=== PATIENT | male | born 1975 | race American Indian/Alaskan Native ===

== ENCOUNTER 2016-12-19 20:47 | Emergency (ER) | payer MEDICAID, OTHER ==
[2016-12-19 20:49] VITALS: BMI 36.0
[2016-12-19 21:07] VITALS: RESP 16; TEMP 98.6
[2016-12-19] MEDS ORDERED: Sodium Chloride 0.9% 1,000 ML IV STA (21:39)
--- NOTE | 2016-12-19 21:41 | ED PDOC ---
Arrival/HPI - General Chief Complaint: GI Problem Time Seen by Provider: 12/19/16 21:38 Historian: Patient - History of Present Illness Narrative History of Present Illness (Text): 12/19/16 21:40 This 41 yo male with pmh constipation, presents to this ED c/o abdominal pain since early this morning. Patient stated he saw his PMD last week for constipation, and he was prescribed Miralax, but medication is not working. Patient denies n/v, sob, cp, rectal bleeding, melena, hematochezia, dizziness, rash, urinary symptoms, or abnormal gait. Time/Duration: Other (see hpi) Context: Home Past Medical History - Provider Review Nursing Documentation Reviewed: Yes - Infectious Disease Hx of Infectious Diseases: None - Cardiac Hx Cardiac Disorders: No - Pulmonary Hx Respiratory Disorders: No - Neurological Hx Neurological Disorder: No - HEENT Hx HEENT Disorder: No - Renal Hx Renal Disorder: No - Endocrine/Metabolic Hx Endocrine Disorders: No - Hematological/Oncological Hx Blood Disorders: No - Integumentary Hx Dermatological Disorder: No - Musculoskeletal/Rheumatological Hx Musculoskeletal Disorders: No - Gastrointestinal Hx Constipation: Yes - Genitourinary/Gynecological Hx Genitourinary Disorders: No - Psychiatric Hx Psychophysiologic Disorder: No Hx Substance Use: No - Anesthesia Hx Anesthesia: No Family/Social History - Physician Review Nursing Documentation Reviewed: Yes Family/Social History: No Known Family HX Smoking Status: Never Smoked Hx Alcohol Use: Yes Hx Substance Use: No Allergies/Home Meds Allergies/Adverse Reactions: Allergies No Known Allergies Allergy (Verified 12/19/16 21:01) Home Medications: Home Meds Medication Instructions Recorded Confirmed Polyethylene Glycol 3350 [Miralax] 1 packet PO PRN PRN 12/19/16 12/19/16 Review of Systems - Review of Systems Constitutional: Normal. absent: Fatigue, Weight Change, Fevers Eyes: Normal ENT: Normal Respiratory: Normal. absent: SOB, Cough Cardiovascular: Normal. absent: Chest Pain, Palpitations Gastrointestinal: Abdominal Pain, Constipation. absent: Diarrhea, Nausea, Vomiting Genitourinary Male: Normal. absent: Dysuria, Frequency, Hematuria, Urinary Output Changes Musculoskeletal: Normal Skin: Normal. absent: Rash Neurological: Normal. absent: Headache, Dizziness Endocrine: Normal Hemo/Lymphatic: Normal Psychiatric: Normal Physical Exam Vital Signs Temp Pulse Resp BP Pulse Ox 12/20/16 01:52 65 16 120/63 100 12/19/16 23:00 65 16 125/79 100 12/19/16 21:05 98.6 F 70 16 117/61 95 Temperature: Afebrile Blood Pressure: Normal Pulse: Regular Respiratory Rate: Normal Appearance: Positive for: Well-Appearing, Non-Toxic, Comfortable Pain Distress: None Mental Status: Positive for: Alert and Oriented X 3 - Systems Exam Head: Present: Atraumatic, Normocephalic Pupils: Present: PERRL Extroacular Muscles: Present: EOMI Conjunctiva: Present: Normal Mouth: Present: Moist Mucous Membranes Neck: Present: Normal Range of Motion Respiratory/Chest: Present: Clear to Auscultation, Good Air Exchange. No: Respiratory Distress, Accessory Muscle Use Cardiovascular: Present: Regular Rate and Rhythm, Normal S1, S2. No: Murmurs Abdomen: Present: Normal Bowel Sounds, Other (non-tympanic). No: Tenderness, Distention, Peritoneal Signs, Rebound, Guarding Back: Present: Normal Inspection. No: CVA Tenderness Upper Extremity: Present: Normal Inspection, Normal ROM, NORMAL PULSES, Capillary Refill < 2s. No: Cyanosis, Edema Lower Extremity: Present: Normal Inspection, Normal ROM, Neurovascularly Intact , Capillary Refill < 2 s. No: Edema Neurological: Present: GCS=15, CN II-XII Intact, Speech Normal, Motor Func Grossly Intact, Normal Sensory Function, Norm Deep Tendon Reflexes, Gait Normal , Memory Normal Skin: Present: Warm, Dry, Normal Color. No: Rashes Psychiatric: Present: Alert, Oriented x 3, Normal Insight, Normal Concentration Medical Decision Making ED Course and Treatment: 12/20/16 01:18 Re-evaluation. Patient feels better. Discussed results and plan with patient who expresses understanding. All questions answered and there is agreement with the plan to discharge home with instructions. Patient stable for discharge. Return if symptoms persist or worsen. Patient is aware of lung nodule, and he will need a CT scan of chest as out- patient. Re-evaluation Time: 01:18 Reassessment Condition: Re-examined, Improved - Lab Interpretations Lab Results: 12/19/16 22:55 12/19/16 22:55 Lab Results 12/20/16 00:10: Urine Color Yellow, Urine Appearance Clear, Urine pH 7.0, Ur Specific [place] 1.015, Urine Protein Negative, Urine Glucose (UA) Negative, Urine Ketones Negative, Urine Blood Negative, Urine Nitrate Negative, Urine Bilirubin Negative, Urine Urobilinogen 0.2, Ur Leukocyte Esterase Negative 12/19/16 22:55: Sodium 139, Potassium 4.4, Chloride 100, Carbon Dioxide 32, Anion Gap 11, BUN 19, Creatinine 1.4, Est GFR ( Amer) > 60, Est GFR (Non- Af Amer) 56, Random Glucose 95, Calcium 8.9, Total Bilirubin 0.6, AST 36, ALT 44 , Alkaline Phosphatase 76, Total Protein 7.6, Albumin 3.9, Globulin 3.6, Albumin /Globulin Ratio 1.1, Lipase 177 12/19/16 22:55: PT 11.3, INR 1.05 12/19/16 22:55: WBC 7.2, RBC 5.05, Hgb 14.1, Hct 41.4 L, MCV 82.0, MCH 27.9, MCHC 34.1, RDW 13.5, Plt Count 219, MPV 11.9 H, Gran % 56.8, Lymph % (Auto) 32.1 , [place] % (Auto) 7.9 H, Eos % (Auto) 3.1, Baso % (Auto) 0.1, Gran # 4.07, Lymph # 2.3, [place] # 0.6, Eos # 0.2, Baso # 0.01 I have reviewed the lab results: Yes Interpretation: No clinic. lab abnormalty - RAD Interpretation Narrative RAD Interpretations (Text): 12/20/16 01:17 [facility] FINDINGS: Lower thorax: 0.5 cm RIGHT middle lobe nodule. ABDOMEN: Liver: Unremarkable. No mass. Gallbladder and bile ducts: No calcified stones. No ductal dilation. Pancreas: No ductal dilation. No mass. Spleen: No splenomegaly. Adrenals: No mass. Kidneys and ureters: No mass. No hydronephrosis. Stomach and bowel: Fluid/loose stool within mid to distal colon. No definite mural thickening. No obstruction. Appendix: Normal caliber. No inflammation. PELVIS: Bladder: Unremarkable. Reproductive: Unremarkable as visualized. ABDOMEN and PELVIS: Intraperitoneal space: No significant fluid collection. No free air. Bones/joints: No acute fracture. Soft tissues: Tiny umbilical hernia containing fat. Vasculature: Unremarkable. No abdominal aortic aneurysm. Lymph nodes: No pathologically enlarged lymph nodes. IMPRESSION: 1. Fluid/loose stool within bowel may suggest diarrhea illness. 2. Pulmonary nodules. For low-risk patients recommend follow-up CT at 12 months. If unchanged, no further follow-up. For high-risk patients (smoking history or other known risk factors) initial followup CT at 6-12 months and if unchanged, 18-24 months. 3. Incidental/non-acute findings are described above. Thank you for allowing us to participate in the care of your patient. Dictated and Authenticated by: Spencer Jordan MD 12/20/2016 1:05 AM Eastern Time ([place] & [place]) Radiology Orders: 12/19/16 21:39 ABD PELVIS PO & IV CONTRAST [CT] Stat - Medication Orders Current Medication Orders: Discontinued Medications Sodium Chloride (Sodium Chloride 0.9%) 1,000 mls @ 1,000 mls/hr IV .Q1H STA Stop: 12/19/16 22:38 Last Admin: 12/19/16 23:04 Dose: 1,000 mls/hr Iohexol (Omnipaque 350 100 Ml) Confirm Administered Dose 350 mg .ROUTE .STK-MED ONE Stop: 12/19/16 21:48 Iohexol (Omnipaque 240 (50 Ml)) Confirm Administered Dose 50 ml .ROUTE .STK-MED ONE Stop: 12/19/16 21:50 Magnesium Citrate (Citrate Of Mag) 300 ml PO ONCE ONE Stop: 12/20/16 01:25 Last Admin: 12/20/16 01:54 Dose: 300 ml Ondansetron HCl (Zofran Inj) 4 mg IVP STAT STA Stop: 12/19/16 21:40 Last Admin: 12/19/16 23:04 Dose: 4 mg Disposition/Present on Arrival - Present on Arrival Any Indicators Present on Arrival: No History of DVT/PE: No History of Uncontrolled Diabetes: No Urinary Catheter: No History of Decub. Ulcer: No History Surgical Site Infection Following: None - Disposition Have Diagnosis and Disposition been Completed?: Yes Diagnosis: Constipation, Lung nodule Disposition: HOME/ ROUTINE Disposition Time: 01:20 Patient Plan: Discharge Condition: GOOD Discharge Instructions (ExitCare): Constipation (ED), Pulmonary Nodules (ED) Additional Instructions: Call private doctor for follow up visit in 1-2 days. Take medication as instructed. Return to emergency if symptoms worsen. Speak with your doctor regarding lung nodule found on cat scan Prescriptions: Lactulose 20 gm PO BID PRN #1 bottle PRN Reason: Constipation Magnesium Citrate [Citrate of Mag] 150 ml PO BID PRN #1 bottle PRN Reason: Constipation Referrals: Susu Dorantes, [Non-Staff] - Follow up with primary Radha ARREOLA,MD Brock [Medical Doctor] - Follow up with primary [facility] [Outside] - Follow up with primary [facility] [Outside] - Follow up with primary Forms: WORK NOTE
[2016-12-19] MEDS ORDERED: Iohexol 350 MG/100 ML VIAL ONE (21:47)
[2016-12-19] MEDS ORDERED: Iohexol 240 (50 ml) ONE (21:49)
[2016-12-19 23:03] LABS: ADD MANUAL DIFF? NO
[2016-12-19 23:04] VITALS: PULSE 65; O2SAT 100
[2016-12-19 23:12] LABS: BASO # 0.01 K/mm3 (0.0-2.0); BASO % 0.1 % (0.0-3.0); EOS # 0.2 (0.0-0.7); EOS % 3.1 % (1.5-5.0); GRAN # 4.07 (1.4-6.5); GRAN % 56.8 % (50.0-68.0); HEMATOCRIT 41.4 % (42.0-52.0); LYMPH # 2.3 (1.2-3.4); LYMPH % 32.1 % (22.0-35.0); MEAN CORPUSCULAR HEMOGLOBIN 27.9 pg (25.0-35.0); MEAN CORPUSCULAR HGB CONC 34.1 g/dl (31.0-37.0); MEAN PLATELET VOLUME 11.9 fl (7.0-11.0); MONO # 0.6 (0.1-0.6); MONO % 7.9 % (1.0-6.0); PLATELET COUNT 219 10^3/uL (120.0-450.0); RED CELL DISTRIBUTION WIDTH 13.5 % (11.5-14.5); WHITE BLOOD COUNT 7.2 10^3/ul (4.5-11.0)
[2016-12-19 23:17] LABS: ALB/GLOB RATIO 1.1 (1.1-1.8); ALKALINE PHOSPHATASE 76 U/L (38-133); ALT/SGPT 44 U/L (7-56); AST/SGOT 36 U/L (15-59); BILIRUBIN,TOTAL 0.6 mg/dL (0.2-1.3); BLOOD UREA NITROGEN 19 mg/dL (7-21); CALCIUM 8.9 mg/dL (8.4-10.5); CARBON DIOXIDE 32 mmol/L (21-33); CHLORIDE 100 mmol/L (98-107); GFR AFRICAN-AMERICAN > 60; GLUCOSE,RANDOM 95 mg/dL (70-110); LIPASE 177 U/L (23-300); POTASSIUM 4.4 mmol/L (3.6-5.0); SODIUM 139 mmol/L (132-148); TOTAL PROTEIN 7.6 g/dL (5.8-8.3)
[2016-12-19 23:25] LABS: INR 1.05 (0.93-1.08)
[2016-12-20 00:20] LABS: URINE BILIRUBIN NEGATIVE (NEGATIVE); URINE BLOOD NEGATIVE (NEGATIVE); URINE GLUCOSE (UA) NEGATIVE (NEGATIVE); URINE KETONE NEGATIVE (NEGATIVE); URINE LEUKOCYTE ESTERASE NEGATIVE Leu/uL (NEGATIVE); URINE PROTEIN NEGATIVE mg/dL (<30 mg/dL); URINE UROBILINOGEN 0.2 E.U./dL (<1 E.U./dL)
[2016-12-20 00:24] LABS: URINE APPEARANCE CLEAR (CLEAR); URINE COLOR YELLOW (YELLOW)
--- NOTE | 2016-12-20 01:05 | CT ---
EXAM: CT Abdomen and Pelvis With Intravenous Contrast CLINICAL HISTORY: 41 years old, male; Pain; Abdominal pain; Generalized; Additional info: Generalized abdominal pain TECHNIQUE: Axial computed tomography images of the abdomen and pelvis with intravenous contrast. This CT exam was performed using one or more of the following dose reduction techniques: automated exposure control, adjustment of the mA and/or kV according to patient size, and/or use of iterative reconstruction technique. Coronal and sagittal reformatted images were created and reviewed. CONTRAST: 96 mL of OMNI 350 administered intravenously. COMPARISON: No relevant prior studies available. FINDINGS: Lower thorax: 0.5 cm RIGHT middle lobe nodule. ABDOMEN: Liver: Unremarkable. No mass. Gallbladder and bile ducts: No calcified stones. No ductal dilation. Pancreas: No ductal dilation. No mass. Spleen: No splenomegaly. Adrenals: No mass. Kidneys and ureters: No mass. No hydronephrosis. Stomach and bowel: Fluid/loose stool within mid to distal colon. No definite mural thickening. No obstruction. Appendix: Normal caliber. No inflammation. PELVIS: Bladder: Unremarkable. Reproductive: Unremarkable as visualized. ABDOMEN and PELVIS: Intraperitoneal space: No significant fluid collection. No free air. Bones/joints: No acute fracture. Soft tissues: Tiny umbilical hernia containing fat. Vasculature: Unremarkable. No abdominal aortic aneurysm. Lymph nodes: No pathologically enlarged lymph nodes. IMPRESSION: 1. Fluid/loose stool within bowel may suggest diarrhea illness. 2. Pulmonary nodules. For low-risk patients recommend follow-up CT at 12 months. If unchanged, no further follow-up. For high-risk patients (smoking history or other known risk factors) initial follow-up CT at 6-12 months and if unchanged, 18-24 months. 3. Incidental/non-acute findings are described above.
[2016-12-20] MEDS ORDERED: Magnesium Citrate Oral SOL (300 ml) PO ONE (01:24)
[2016-12-20 01:54] VITALS: BP 120/63
== END 2016-12-20 01:57 | disposition home or self-care (01) ==
LOC: ED 20:47
DX: K59.00 Constipation, unspecified (principal); R91.8 Other nonspecific abnormal finding of lung field
CPT/HCPCS: 74177; 80053; 81003; 83690; 85025; 85610; 96374; 99284; J2405; J7040; Q9966; Q9967